=== PATIENT | male | born 1950 | race Caucasian/White ===

== ENCOUNTER 2016-09-10 12:29 | Emergency (ER) | payer SELFPAY | END 2016-09-10 15:47 | disposition home or self-care (01) | LOC: ER 12:29 | DX: G89.29 Other chronic pain (principal); M54.9 Dorsalgia, unspecified; F17.200 Nicotine dependence, unspecified, uncomplicated; Z88.8 Allergy status to other drugs, medicaments and biological substances | CPT/HCPCS: 99283 ==